=== PATIENT | female | born 1995 | race Caucasian/White ===

== ENCOUNTER → 2017-01-20 | Outpatient (CLI) | payer OTHER ==
[~2017-01-20] MED LIST: CATHETER FLUSH 10 ML SYR IV PRN; DESO1TAB10; IOHEXOL 350 MG/ML 100 ML (OMNIPAQUE 350) VIAL IV ONE; NS 100 ML (IVPB) BAG IV ONE; ONDA8TAB9 PO; OXYC-197 PO; VENL150C PO; VENL150C98 PO; bcp
--- NOTE | 2017-01-20 13:06 | Diagnostic Imaging Report ---
PROCEDURE: CT neck soft tissue with contrast. TECHNIQUE: Multiple contiguous axial images were obtained through the neck after the administration of contrast. INDICATION: Mass posterior to the left sternocleidomastoid muscle. COMPARISON: There are no prior studies available for comparison. FINDINGS: Reportedly, there is clinical concern regarding a mass in the region of the sternocleidomastoid muscle on the left. On this exam, there is no discrete mass identified. There are a few small nodes on each side of the neck, but these do not seem to be pathologically enlarged. The sternocleidomastoid muscles themselves are also symmetrical in appearance. No other mass is identified. There is a small 6 mm well-defined area of diminished density in the right lobe of the thyroid. I suspect that this is a benign process. The thyroid is otherwise unremarkable. The submandibular glands and the parotid glands are also within normal limits. The intracranial contents, where visualized, show no sign of an acute abnormality. The sinuses are generally clear. The lung apices are also clear. There is some increased density in the anterior mediastinum. Most likely, this is due to residual thymic tissue. The bone windows show no evidence for a fracture or for a destructive lesion. IMPRESSION: 1. There is no soft tissue mass in the region of the left sternocleidomastoid muscle. 2. No other mass is identified, and there is no sign of an acute abnormality. 3. The small 6 mm area of low density in the right lower thyroid is most likely a benign process. If further imaging is desired, then ultrasound would be recommended. Dictated by: Dictated on workstation # [id number]
== END ==
LOC: RAD 08:05
PROVIDERS: ATTEND Internal Medicine
DX: M54.2 Cervicalgia (principal)
CPT/HCPCS: 70491